=== PATIENT | female | born 1935 | race Caucasian/White ===

== ENCOUNTER 2017-08-12 10:52 | Outpatient (CLI) | payer MEDICARE | END 2017-08-12 10:53 | disposition home or self-care (01) | LOC: BICBD 10:52 | PROVIDERS: ATTEND Internal Medicine Endocrinology, Diabetes & Metabolism | DX: Z13.820 Encounter for screening for osteoporosis (principal); M89.9 Disorder of bone, unspecified | CPT/HCPCS: 77080 ==

== ENCOUNTER 2018-09-29 18:54 | Observation (INO) | payer MEDICARE ==
[2018-09-29] MEDS ORDERED: Nitroglycerin 2% Ointment 1 INCH/1 GM Packet ONE (19:42)
[2018-09-29] MEDS ORDERED: Aspirin Chewable 81 MG TAB ONE (19:42)
[2018-09-29 19:48] LABS: Hemoglobin 11.1 g/dL (12.0-16.0); Mean Corpuscular HGB CONC 30.3 g/dL (32.0-36.0); Mean Corpuscular Hemoglobin 23.5 pg (27.0-31.0); Mean Corpuscular Volume 77.6 fL (78.0-98.0); Mean Platelet Volume 7.9 fL (7.4-10.4); Platelet Count 368 thou/uL (130-400); RBC Distribution Width 15.6 % (11.5-14.5); Red Blood Cell (RBC) Count 4.73 mill/uL (4.20-5.40); White Blood Cell (WBC) Count 12.3 thou/uL (4.8-10.8)
[2018-09-29 19:53] LABS: #Basophils 0.2 thou/uL (0.0-0.2); #Eosinphils 0.3 thou/uL (0.0-0.7); #Lymphocytes 2.7 thou/uL (1.20-3.40); #Monocytes 0.9 thou/uL (0.11-0.59); #Neutrophils 8.3 thou/uL (1.40-6.50); %Basophils 1.3 % (0.0-1.0); %Eosinophils 2.3 % (0.0-10.0); %Lymphocytes 21.6 % (21.0-51.0); %Monocytes 7.1 % (0.0-10.0); %Neutrophils 67.7 % (42.0-75.0)
[2018-09-29 19:54] LABS: Anisocytosis SLIGHT = 6-15 cells (100X) (0-5/hpf); MDiff Complete? YES; Microcytosis SLIGHT = 6-15 cells (100X) (0-5/hpf); Ovalocytes SLIGHT = 2-5 cells (100X) (0-1/hpf); Platelet Morphology Comment Appears Adequate; Polychromasia SLIGHT = 2-3 cells (100X) (0-2/hpf)
[2018-09-29 20:01] LABS: ALT (SGPT) 16 U/L (8-55); AST (SGOT) 14 U/L (5-34); Alkaline Phosphatase 73 U/L (40-150); Anion Gap 17 mmol/L (10-20); BUN (Urea Nitrogen) 24 mg/dL (9.8-20.1); Bilirubin, Total 0.1 mg/dL (0.2-1.2); CK (CPK) 55 U/L (29-168); Calc. Creatinine Clearance 0 mL/min (70-130); Calcium 10.4 mg/dL (7.8-10.44); Carbon Dioxide 22 mmol/L (23-31); Chloride 106 mmol/L (98-107); Estimated GFR-MDRD 58; Globulin 3.4 g/dL (2.4-3.5); Glucose 102 mg/dL (83-110); Lipase 11 U/L (8-78); Potassium 4.6 mmol/L (3.5-5.1); Protein, Total 7.4 g/dL (6.0-8.3); Sodium 140 mmol/L (136-145)
--- NOTE | 2018-09-29 20:35 | RAD ---
TWO VIEW CHEST: 09/29/18 INDICATION: Chest pain. No evidence of infiltrate. Vascular markings normal. Heart size upper normal. Mild aortic calcificati on. Osseous structures unremarkable. IMPRESSION: No acute finding. POS: [facility]
[2018-09-29] MEDS ORDERED: Enoxaparin Sodium 80 MG/0.8 ML SYRINGE ONE (20:41)
--- NOTE | 2018-09-29 21:05 | RAD ---
PORTABLE CHEST: 09/29/18 HISTORY: Chest pain, shortness of breath. Film technique is suboptimal. Soft tissue obscures detail, particularly in the left base. Heart size is felt to be within normal limits considering the portable technique. No signs of failure. IMPRESSION: Less than optimal technique for this exam. What are felt to be soft tissue changes obscure the left l emily base. Clinical correlation as to any symptoms that would suggest any type of infiltrate. A PA and lateral chest film would be helpful in confirming there no abnormality exists in this area. POS: [facility]
[2018-09-29 22:15] LABS: Troponin I Less than 0.010 ng/mL (< 0.028)
[2018-09-30 01:20] VITALS: BMI 29.0
[2018-09-30 01:43] LABS: Troponin I Less than 0.010 ng/mL (< 0.028)
[2018-09-30] MEDS ORDERED: [UNRECOGNIZED DRUG - OTHER] SC PRN (06:37)
[2018-09-30] MEDS ORDERED: Prevnar 13-Val Conj/PF 0.5 ML SYRINGE IM ONE (09:00)
[2018-09-30 10:24] LABS: Bilirubin Negative (Negative); Blood, Urine Negative (Negative); Clarity CLEAR (Clear); Glucose, Urine (Dipstick) Negative (Negative); Leukocyte Negative (Negative); Nitrite Negative (Negative); Protein, Urine (Dipstick) Negative (Neg-Trace); Specific Gravity, Urine 1.017 (1.002-1.036); Urobilinogen 0.2 mg/dL (0.2-1.0)
[2018-09-30 10:26] LABS: Bacteria/HPF None Seen HPF (None Seen); Hyaline Casts/LPF 4-6 HYALINE CAST LPF (0-3 Hyaline); Pathc Cast-AUWi Flag 1.74 (0-2.49); RBC/HPF 0-3 HPF (0-3); Squamous Epithelial 0-3 HPF (0-3); WBC/HPF 0-3 HPF (0-3)
[2018-09-30 10:35] LABS: Urine Culture Reflex No No
--- NOTE | 2018-09-30 13:50 | NM ---
NUCLEAR MEDICINE VENTILATION PERFUSION SCAN: HISTORY: Elevated D-dimer. Evaluate for pulmonary artery embolism. COMPARISON: None. TECHNIQUE: The patient was administered 18.8 mCi of Xenon gas for ventilation imaging and 6.1 mCi of Technetium 99m-MAA for perfusion imaging. FINDINGS: VENTILATION IMAGIGN: There appears to e homogeneous distribution of the radiotracer. There is mild radiotracer retention. Perfusion images demonstrate some segmental ventilation perfusion mismatches in the right upper lobe, lateral aspect of the right mid lung and left upper lobe. Findings suggest intermediate probability for pulmonary artery embolism. IMPRESSION: Intermediate probability for pulmonary artery embolism. Further evaluation with CT angiogram of the chest is recommended. Examination was discussed with Dr. Gary 09/30/2018 at 12:59 p.m. The exam was reviewed in conjunction with Dr. Vila. CHUY OLIVAREZ POS: [facility]
--- NOTE | 2018-09-30 15:28 | ULT ---
BILATERAL LOWER EXTREMITY VENOUS ULTRASOUND WITH DOPPLER: HISTORY: Elevated D-dimer. COMPARISON: None. TECHNIQUE: Paul scale, color flow, Doppler imaging, and spectral waveform analysis was performed of the left and right lower extremity venous system. FINDINGS: Bilaterally, there is compressibility, presence of flow, and augmentation of the common femoral vein, femoral vein, and popliteal veins. There is flow in bilateral greater saphenous veins, profunda vei ns, and posterior tibial vein. IMPRESSION: No evidence of thrombus in the left or right lower deep venous system. POS: [facility]
[2018-09-30] MEDS: HumaLOG 300 UNITS/3 ML VIAL SC SCH (17:24)
[2018-09-30] MEDS: metFORMIN XR 500 MG TAB PO SCH (20:00)
[2018-09-30] MEDS ORDERED: Escitalopram Oxalate 10 mg Tablet PO SCH (20:15)
[2018-09-30] MEDS ORDERED: Verapamil SR 120 MG TAB PO SCH (20:15)
[2018-09-30] MEDS ORDERED: Nebivolol HCl 5 MG TAB PO SCH (20:15)
[2018-09-30] MEDS ORDERED: Lisinopril 20 MG TAB PO SCH (20:15)
[2018-09-30] MEDS ORDERED: Levothyroxine Sodium 112 MCG TAB PO SCH (20:15)
[2018-09-30] MEDS ORDERED: HumaLOG 300 UNITS/3 ML VIAL SC SCH (20:15)
[2018-09-30] MEDS ORDERED: Bupropion 150 MG XL TAB PO SCH (20:15)
[2018-09-30] MEDS: Cephalexin 250 MG CAP PO SCH (20:39)
[2018-09-30] MEDS: predniSONE 50 MG TAB PO SCH (20:40)
[2018-10-01] MEDS ORDERED: cloNIDine 0.1 MG TAB PO SCH (00:45)
[2018-10-01] MEDS: predniSONE 50 MG TAB PO SCH ×2 (00:48→08:01)
--- NOTE | 2018-10-01 02:51 | HP ---
HISTORY OF PRESENT ILLNESS: The patient is an 83-year-old female with known history of type 1 diabetes mellitus, presented with chest pain, dyspnea began while working in the kitchen with minimal exertion the rest of the day. She was seen and evaluated in the emergency room. There was no evidence of any acute coronary syndrome noted. Her initial troponins were negative. The patient remained with having some chest discomfort. It is noted that approximately 1 month or 6 weeks ago, she did have a stress test done by Dr. Perales as a workup for preoperative clearance. It has been reported that it is normal. As noted, her initial cardiac enzymes have been negative. She does not report any further chest pain. She was given multiple doses of aspirin. She did have a D-dimer done, which was elevated. Otherwise, no other laboratory findings other than elevated blood sugars have been noted. The patient noted onset of pain yesterday once again, not associated with any nausea, vomiting, or diarrhea. She has pending surgery to do. She has no previous history of DVT or embolic phenomena. ALLERGIES: SHE IS ALLERGIC TO IODINE WELL SULFA. CURRENT MEDICATIONS: 1. Verapamil 360 mg daily. 2. Bystolic 5 mg daily. 3. Lisinopril 20 mg daily. 4. Bupropion 150 mg daily. 5. 5 mg daily. 6. NovoLog insulin 6 units t.i.d. 7. Prilosec 20 mg daily. 8. Levothyroxine 112 mcg daily. 9. Metformin 1000 mg b.i.d. PAST MEDICAL HISTORY: Positive for hypertension, type 1 diabetes mellitus, and hypothyroidism. PAST SURGICAL HISTORY: Positive for appendectomy, hysterectomy, and left thumb surgery. SOCIAL AND PERSONAL HISTORY: She is . She does not smoke nor drinks alcohol. She does have family living close by. REVIEW OF SYSTEMS: Noncontributory at this time. FAMILY HISTORY: Noncontributory at this time. PHYSICAL EXAMINATION: VITAL SIGNS: Temperature 97.7, pulse 69, blood pressure 147/66, respirations 15, and O2 saturation 96%. GENERAL: She is alert and active, in no acute distress. HEENT: Otherwise unremarkable. NECK: Supple. Full range of motion. No masses. LUNGS: Clear. HEART: Reveals a regular rate and rhythm. No murmurs, gallops, or rubs. ABDOMEN: Soft and nontender. Bowel sounds are present and active. No hepatosplenomegaly. There is no evidence of rebound or guarding otherwise noted at this time. EXTREMITIES: No clubbing, edema, or cyanosis. No calf tenderness otherwise noted at this time. NEUROLOGIC: Alert and oriented x3. LABORATORY DATA: Her hemoglobin is 11.1, hematocrit 36.6, white blood count 12.3. D-dimer is elevated at 0.77. Sodium is 140, potassium 4.6, chloride 106, CO2 of 22, BUN 24, creatinine 0.93. Cardiac enzymes are all normal and negative x3. Urinalysis otherwise clear. Chest x-ray is clear. She underwent V/Q scan prior to being fully admitted by me, which has now been read as intermediate. IMPRESSION: 1. This is an 83-year-old female with substernal chest discomfort with elevated D-dimer, now with intermediate reading on the V/Q scan. These are all consistent with possible pulmonary embolus. She does have pending surgery in the next few weeks. Obviously, this would have a major impact upon her ability to withstand surgery. 2. History of type 1 diabetes mellitus. 3. History of hypertension. PLAN: I have discussed the findings with the patient and family. I feel like it will be necessary to undergo full CT angiogram despite contrast allergies. We will go and do contrast allergy protocol. Doppler ultrasound of the legs as well as CT angio of the chest. The patient has been informed of the findings and wishes to proceed. She has already been placed on Lovenox subcutaneously. Further treatment recommendations will be indicated by results of her testing. Job ID: [id number]
[2018-10-01] MEDS: Levothyroxine Sodium 112 MCG TAB PO SCH (06:17)
[2018-10-01] MEDS ORDERED: diphenhydrAMINE 50 MG CAP PO SCH (08:00)
[2018-10-01] MEDS: HumaLOG 300 UNITS/3 ML VIAL SC SCH ×3 (10:20→17:46)
[2018-10-01] MEDS: Cephalexin 250 MG CAP PO SCH ×2 (10:33→21:40)
[2018-10-01] MEDS: Bupropion 150 MG XL TAB PO SCH (10:33)
[2018-10-01] MEDS: Escitalopram Oxalate 10 mg Tablet PO SCH (10:34)
[2018-10-01] MEDS: Lisinopril 20 MG TAB PO SCH (10:36)
[2018-10-01] MEDS: metFORMIN XR 500 MG TAB PO SCH ×2 (10:37→21:43)
[2018-10-01] MEDS: Nebivolol HCl 5 MG TAB PO SCH (10:37)
--- NOTE | 2018-10-01 11:56 | CT ---
CTA OF THE THORAX UTILIZING IV CONTRAST AND PE PROTOCOL AND 3D REFORMATTED IMAGING: INDICATION: History of chest pain with chest flutter and elevated D-dimer. Concern for PE. COMPARISON: VQ scan for PE dated 09/30/2018. FINDINGS: No central or segmental pulmonary embolus is present. There are coronary artery and thoracic aorta c alcifications. No pathologically enlarged lymph nodes are evident. There are calcified lymph nodes within the right tracheobronchial region. There is a calcified granuloma within the right middle lob e. There are areas of subsegmental volume loss within the superior segment of the right lower lobe, and portions of the posterior segment of the right upper lobe. Confluent airspace opacity or pleural effusion is identified. There is a small hiatal hernia. There are calcified granuloma within the s pleen. There is a 1.2 cm left adrenal adenoma. There is a 9 mm right adrenal adenoma. There is a 1 .7 cm myelolipoma involving the right adrenal gland. There is an incompletely evaluated 3 cm cyst in volving the superior pole of the right kidney. This is better evaluated on a right upper quadrant ul trasound dated 06/09/2017 and shown to be a simple cyst. IMPRESSION: 1. No central or segmental pulmonary embolus identified. 2. Findings of prior granulomatous disease. 3. Nonspecific regions of subsegmental volume loss within the right lower lobe and right upper lobe can be seen with a bronchiolitis. 4. 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 There are benign lesions. 5. Right renal cyst. 6. Findings of right granulomatous disease. POS: [facility]
[2018-10-01] MEDS: Verapamil SR 120 MG TAB PO SCH (13:58)
[2018-10-01] MEDS ORDERED: Dextrose 50% Abboject 50 ML SYRINGE IVP PRN (15:10)
[2018-10-01] MEDS ORDERED: Dextrose 5% in Water 1,000 ML IV PRN (15:10)
[2018-10-01] MEDS ORDERED: Acetaminophen 325 MG TAB PO PRN (19:45)
[2018-10-01] MEDS ORDERED: Ibuprofen 800 MG TAB PO PRN (19:46)
--- NOTE | 2018-10-01 21:22 | PRG ---
DATE OF SERVICE: 10/01/2018 SUBJECTIVE: Ms. Jeong is doing well. She underwent CT angiogram and chest after contrast allergy protocol. CT angiogram of chest revealed no pulmonary emboli, positive granulomatous disease, nonspecific volume loss. No evidence of any other significant findings was noted. She is still doing well at this time. OBJECTIVE: LUNGS: Clear. HEART: Reveals a regular rate and rhythm. No murmurs, gallops, or rubs. IMPRESSION: Chest pain with elevated D-dimer. The patient is stable at this time, probably could be discharge tomorrow. Job ID: [id number]
[2018-10-02] MEDS: Levothyroxine Sodium 112 MCG TAB PO SCH (05:59)
--- NOTE | 2018-10-02 09:28 | DIS ---
DATE OF ADMISSION: 09/30/2018 DATE OF DISCHARGE: 10/02/2018 DISCHARGE DIAGNOSES: 1. Elevated D-dimer. Indeterminate V/Q scan. Negative CT angio. Negative venogram. 2. Type 1 diabetes mellitus. 3. Hypertension. HOSPITAL SUMMARY: The patient is an 83-year-old female, who came in with chest pain. She had previous cardiac workup and was cleared for surgery. She had elevated D-dimer. She was followed this up with V/Q scan due to iodine allergy. V/Q scan was read as moderate probability. Due to moderate probability V/Q scan and D-dimer being elevated, she subsequently underwent a CT angio after allergy prep. The patient's CT angio of chest was normal. She also underwent subsequent venogram. She was able to be discharged home on 10/02/2018, with her home medicines. She was instructed to hold her metformin for another day prior to resuming it. She will follow up with me in 2 days. Job ID: [id number]
[2018-10-02] MEDS: HumaLOG 300 UNITS/3 ML VIAL SC SCH ×2 (09:57→13:03)
[2018-10-02] MEDS: Cephalexin 250 MG CAP PO SCH (09:58)
[2018-10-02] MEDS: Escitalopram Oxalate 10 mg Tablet PO SCH (09:58)
[2018-10-02] MEDS: metFORMIN XR 500 MG TAB PO SCH (09:58)
[2018-10-02] MEDS: Bupropion 150 MG XL TAB PO SCH (09:58)
[2018-10-02] MEDS: Nebivolol HCl 5 MG TAB PO SCH (09:59)
[2018-10-02] MEDS: Lisinopril 20 MG TAB PO SCH (09:59)
[2018-10-02] MEDS: Verapamil SR 120 MG TAB PO SCH (10:14)
--- NOTE | 2018-10-02 10:43 | PRG ---
DATE OF SERVICE: 10/02/2018 SUBJECTIVE: Ms. Jeong is doing well. She has had no further chest pain. Her CT angio of the chest was normal. OBJECTIVE: VITAL SIGNS: Temperature 97.7, blood pressure 136/60. LUNGS: Clear. HEART: Reveals no murmur. IMPRESSION: Episode of chest pain with elevated D-dimer and moderate probability V/Q scan was negative with negative CT angio as well as negative venogram. PLAN: The patient may be discharged home. From my opinion, she is still able to have her surgery next week. She discussed this with her surgeon in [place]. We will provide all necessary records. Job ID: [id number]
[2018-10-02 14:05] VITALS: BP 142/63; TEMP 98
== END 2018-10-02 13:04 | disposition home or self-care (01) ==
LOC: SCSER 18:54 → 2NO 09-30 00:03
PROVIDERS: ADMIT Family Medicine; ATTEND Family Medicine
DX: R07.2 Precordial pain (principal); I10 Essential (primary) hypertension; E10.9 Type 1 diabetes mellitus without complications; E03.9 Hypothyroidism, unspecified; R79.1 Abnormal coagulation profile; Z79.82 Long term (current) use of aspirin; Z79.4 Long term (current) use of insulin; Z79.899 Other long term (current) drug therapy; Z88.2 Allergy status to sulfonamides; Z91.041 Radiographic dye allergy status
CPT/HCPCS: 71045; 71046; 71275; 78582; 80053; 81001; 82550; 82962 ×3; 83690; 84484 ×2; 85025; 85379; 93005; 93970; 94760; 96372; 99285; A9540; A9558; G0378 ×3; 36415; 36416; J1650

== ENCOUNTER 2019-05-19 09:41 | Outpatient (CLI) | payer MEDICARE ==
--- NOTE | 2019-05-19 10:22 | ULT ---
GALLBLADDER ULTRASOUND: HISTORY: Right upper quadrant abdominal pain FINDINGS: The liver demonstrates homogeneous echotexture without focal mass or intrahepatic biliary ductal dila tation. No gallstones, gallbladder wall thickening or pericholecystic fluid are seen. There is a complex mass in the region of the body of the pancreas measuring 2.6 x 2.8 cm. The common duct [id number] in diameter. A 5.6 x 6.1 x 6 cm septated cyst is seen arising from the craig perior pole of the right kidney. No free fluid is seen in the Miller's pouch. IMPRESSION: 1. Complex pancreatic mass. CT scan of the abdomen and pelvis with and without IV contrast using the pancreatic and renal mass protocol is recommended. 2. Septated cystic right renal mass.
== END 2019-05-19 09:42 | disposition home or self-care (01) ==
LOC: BICULT 09:41
PROVIDERS: ATTEND Family Medicine
DX: R10.11 Right upper quadrant pain (principal); K86.89 Other specified diseases of pancreas; N28.89 Other specified disorders of kidney and ureter
CPT/HCPCS: 76705

== ENCOUNTER 2019-05-31 08:28 | Outpatient (CLI) | payer MEDICARE ==
--- NOTE | 2019-05-31 11:53 | CT ---
CT Abdomen W WO Con History: Renal and pancreatic cystic masses. Comparison: Ultrasound May 19, 2019 Findings: Lung bases are clear aside from a partially calcified granuloma within the right middle lob e. No pericardial effusion. Within the right adrenal gland is a macroscopic fat-containing myelolipoma measuring up to 2 cm in si ze with a peripheral punctate calcification. The left adrenal gland has a precontrast Hounsfield unit of -13 suggesting a lipid rich adenoma which appears be infiltrating throughout the pancreatic b dashawn, and previously described and characterized as an adenoma. There is also a punctate right adrenal body adenoma. Within the pancreatic head and uncinate process is a multiloculated cystic mass with some wall nodula rity measuring up to 3.5 cm in craniocaudal dimension. Within the pancreatic body there is another multiseptated cystic mass with mural nodularity measuring up to 3.2 cm in AP dimension. There are num erous small cystic masses of the pancreatic tail and body. Within the superior pole right kidney is a septated cyst with measuring up to 5.2 cm. In the inferior pole right kidney is a 1.3 cm mass without significant internal enhancement suggesting a cyst. Too small characterize 4-5 mm hypodensities are present of superior pole right kidney as well as througho ut the cortex of the left kidney. Celiac trunk and superior mesenteric arteries are patent. Moderate atherosclerotic plaque of the aort a. There are small dede hepatis lymph nodes measuring up to 7 mm short axis. Within the gallbladder is dependent cholelithiasis. There is poorly evaluated hypodensity peripheral aspect of the hepatic segment VIII measuring up to 1.7 cm. This is best seen on axial image 129. There is also hypodensity which is poorly marginated hepatic segment VIII image 143 measuring 1.6 cm. The spleen is unremarkable. No dilated loops of large or small bowel the upper abdomen. Impression: 1. Two separate masses within the pancreas, one in the head/uncinate process and the other in the waters creatic body. Given its high risk appearance with mural nodularity, per ACR white paper, surgical consultation is advised. Alternatively, endoscopic ultrasound/FNA can be performed. 2. Poorly delineated hepatic masses within segment VIII could reflect metastatic metastatic disease. They are visualized on the noncontrast portion of the examination, and the lower hepatic segment VIII mass could possibly be percutaneously biopsied if clinically warranted. 3. Right adrenal adenoma and myelolipoma. 4. Mass within left adrenal gland has fat attenuation on the noncontrast portion of the examination s uggesting lipid rich infiltrative adrenal adenoma and a metastasis from cystic pancreatic neoplasm is felt somewhat less likely. 5. Cholelithiasis without cholecystitis.
[2019-05-31] MEDS ORDERED: Iopamidol 370 76% 100 ML VIAL ONE (12:19)
== END 2019-05-31 08:29 | disposition home or self-care (01) ==
LOC: CT 08:28
PROVIDERS: ATTEND Family Medicine
DX: K86.89 Other specified diseases of pancreas (principal); E27.8 Other specified disorders of adrenal gland; D17.5 Benign lipomatous neoplasm of intra-abdominal organs; R16.0 Hepatomegaly, not elsewhere classified; K80.20 Calculus of gallbladder without cholecystitis without obstruction
CPT/HCPCS: 74170; 82565; Q9967

== ENCOUNTER 2019-07-06 13:44 | Outpatient (CLI) | payer MEDICARE ==
--- NOTE | 2019-07-06 15:28 | PET ---
PET CT: HISTORY: An 83-year-old female with pancreatic cancer and liver mets. Initial staging. COMPARISON: None. CORRELATION: CT abdomen of 05/31/2019. TECHNIQUE: PET scanning with CT attenuation correction was performed from the base of the brain through the prox imal thighs following the intravenous administration of 12.6 millicuries F18 fluorodeoxyglucose in th e right wrist. FINDINGS: No hardik hypermetabolism is seen in the neck, chest, axillae, abdomen or pelvis. No hypermetabolic pu lmonary nodules or adrenal or skeletal lesions are seen. There is mildly increased FDG: localization in the pancreatic head/uncinate process in the region of the mass seen on the CT scan with an SUV of 2.6. No abnormal FDG localization is seen in the other pa ncreatic masses noted on the CT scan. There are two hypermetabolic foci in the right lobe of the liver with SUVs of 5.9 (superior lesion cl ose to the dome) and 5 (inferior lesion), respectively. There is physiologic activity in the GI and tracts and in the visualized portions of the brain. CT scan used for attenuation correction demonstrates no evidence of pleural effusions or ascites. IMPRESSION: Pancreatic malignancy with right liver lobe metastases. POS: [facility]
== END 2019-07-06 13:45 | disposition home or self-care (01) ==
LOC: PET 13:44
PROVIDERS: ATTEND Internal Medicine Hematology & Oncology
DX: C78.7 Secondary malignant neoplasm of liver and intrahepatic bile duct (principal); C25.9 Malignant neoplasm of pancreas, unspecified
CPT/HCPCS: 78815; A9552

== ENCOUNTER 2019-07-08 08:54 | Day surgery (SDC) | payer MEDICARE ==
[2019-07-08] MEDS ORDERED: Ketorolac Tromethamine 30 MG/ML VIAL ONE (09:42)
[2019-07-08] MEDS ORDERED: Famotidine/PF 20 mg/2ml Vial ONE (09:49)
[2019-07-08 10:05] LABS: #Basophils 0.1 thou/uL (0.0-0.2); #Eosinphils 0.1 thou/uL (0.0-0.7); #Lymphocytes 0.9 thou/uL (1.20-3.40); #Monocytes 0.6 thou/uL (0.11-0.59); #Neutrophils 9.8 thou/uL (1.40-6.50); %Basophils 0.6 % (0.0-1.0); %Eosinophils 1.1 % (0.0-10.0); %Lymphocytes 7.9 % (21.0-51.0); %Neutrophils 85.5 % (42.0-75.0); Hemoglobin 12.4 g/dL (12.0-16.0); Mean Corpuscular HGB CONC 31.4 g/dL (32.0-36.0); Mean Corpuscular Hemoglobin 27.2 pg (27.0-31.0); Mean Corpuscular Volume 86.6 fL (78.0-98.0); Mean Platelet Volume 9.1 fL (7.4-10.4); Platelet Count 314 thou/uL (130-400); RBC Distribution Width 18.7 % (11.5-14.5); Red Blood Cell (RBC) Count 4.55 mill/uL (4.20-5.40); White Blood Cell (WBC) Count 11.5 thou/uL (4.8-10.8)
[2019-07-08 10:13] LABS: Anion Gap 13 mmol/L (10-20); BUN (Urea Nitrogen) 27 mg/dL (9.8-20.1); Calc. Creatinine Clearance 0 mL/min (70-130); Calcium 10.4 mg/dL (7.8-10.44); Carbon Dioxide 24 mmol/L (23-31); Chloride 105 mmol/L (98-107); Estimated GFR-MDRD 40; Glucose 471 mg/dL (83-110); Potassium 4.4 mmol/L (3.5-5.1); Sodium 138 mmol/L (136-145)
[2019-07-08] MEDS ORDERED: Lidocaine 1% w/Epinephrine 1:100K 20 ML VIAL ONE (10:13)
[2019-07-08] MEDS ORDERED: Bupivacaine 0.25% HCL 30 ML VIAL ONE (10:13)
--- NOTE | 2019-07-08 10:35 | RAD ---
PORTABLE CHEST: Date: 07/08/19 HISTORY: Preop. FINDINGS: Heart size is within normal limits. There are atherosclerotic changes of the aorta. There is some enrique ear scarring in the left mid lung field. No pulmonary nodules are identified. There is some minimal b lunting to the right costophrenic angle. IMPRESSION: No active intrathoracic disease. POS: [facility]
[2019-07-08] MEDS ORDERED: PROPOFOL 60 ML ONE (10:39)
[2019-07-08] MEDS ORDERED: Fentanyl 100 MCG/2 ML VIAL ONE (10:39)
--- NOTE | 2019-07-08 12:16 | RAD ---
Chest one view HISTORY: Mediport placement COMPARISON: 07/08/2019. FINDINGS: Cardiac silhouette is magnified and upper limits of normal in size. Shallow inspiration acc entuates pulmonary markings. Vascular markings at the left posterior lung base are unchanged. Mediastinum is midline with aortic calcification and a new right subclavian Mediport. Tip overlies th e superior vena cava. No evidence of pneumothorax. IMPRESSION: Right subclavian Mediport in good radiographic position. Atherosclerosis.
[2019-07-08] MEDS ORDERED: PROPOFOL 200 MG/20 ML VIAL ONE (14:40)
--- NOTE | 2019-07-09 13:51 | OP ---
DATE OF PROCEDURE: 07/08/2019 PREOPERATIVE DIAGNOSIS: Pancreatic cancer. POSTOPERATIVE DIAGNOSIS: Pancreatic cancer. PROCEDURES PERFORMED: Right subclavian power compatible standard size MediPort placement. ANESTHESIA: Total intravenous anesthesia with local using 0.25% Marcaine with epinephrine. INDICATIONS: The patient is an 84-year-old white female. She has a recent diagnosis of metastatic pancreatic cancer. She presents for MediPort placement for chemotherapy administration. DESCRIPTION OF OPERATION: Informed consent was obtained. The patient was taken to the operating room where total intravenous anesthesia was obtained with the patient in supine position. Periclavicular area was prepped with ChloraPrep and draped in sterile fashion. Local anesthetic was infiltrated and a large-gauge needle was passed under the clavicle in the subclavian vein. Guidewire was passed through the needle and fluoroscopically confirmed to enter the superior vena cava. Additional local anesthetic was infiltrated and transverse incision was created based on needle insertion site. A subcutaneous pocket was dissected inferiorly. Introducer dilator was passed over the guidewire under fluoroscopic guidance. The guidewire and dilator were removed, and the catheter was passed through the introducer. The tip of the catheter was positioned at the atriocaval junction and the catheter was trimmed to the appropriate length and secured to the locking hub of the MediPort. The port was then placed in the subcutaneous pocket where it was secured to the pectoral fascia with 2 interrupted sutures of 3-0 Prolene. The incision was then closed in layers with 3-0 and 4-0 Monocryl. Additional local anesthetic was infiltrated. The port was cannulated with a Ching needle and it aspirated blood freely and was flushed with heparinized saline. Dermabond was placed externally on the skin incision. There were no complications. Blood loss was negligible. The patient tolerated the procedure well and was taken to recovery room in stable condition. FINDINGS: I placed a standard size MediPort in the right subclavian vein in an uneventful fashion. Blood loss was negligible. Fluoroscopy was used throughout. There were no complications. Job ID: [id number]
== END 2019-07-08 13:40 | disposition home or self-care (01) ==
LOC: SDC 08:54
PROVIDERS: ATTEND Specialist
PROC: 0JH60WZ Insertion of Totally Implantable Vascular Access Device into Chest Subcutaneous Tissue and Fascia, Open Approach (ICD-10-PCS; principal; 2019-07-08)
PROC: 02HV33Z Insertion of Infusion Device into Superior Vena Cava, Percutaneous Approach (ICD-10-PCS; 2019-07-08)
PROC: B518ZZA Fluoroscopy of Superior Vena Cava, Guidance (ICD-10-PCS; 2019-07-08)
DX: C25.9 Malignant neoplasm of pancreas, unspecified (principal); C78.7 Secondary malignant neoplasm of liver and intrahepatic bile duct; I10 Essential (primary) hypertension; E11.9 Type 2 diabetes mellitus without complications; E03.9 Hypothyroidism, unspecified; K21.9 Gastro-esophageal reflux disease without esophagitis; M19.90 Unspecified osteoarthritis, unspecified site; Z79.4 Long term (current) use of insulin; Z79.899 Other long term (current) drug therapy; Z88.2 Allergy status to sulfonamides; Z91.041 Radiographic dye allergy status
CPT/HCPCS: 36561; 71045; 80048; 82962; 85025; 93005; C1788; 36416; 93010; J0131; J0690; J1642; J1885; J2704; J3010; S0020; S0028

== ENCOUNTER 2019-10-05 09:10 | Outpatient (CLI) | payer MEDICARE ==
--- NOTE | 2019-10-05 11:01 | PET ---
EXAM: PET/CT HISTORY: 84-year-old female with a pancreatic masses and metastatic disease to the liver TECHNIQUE: PET scanning with CT attenuation correction was performed from the base of the brain to the proximal thighs following the intravenous administration of 12.3 millicuries [id number]. COMPARISON: PET/CT dated July 06, [address] of the abdomen dated May 31, 2019 FINDINGS: Biodistribution:The biodistribution for the exam appears acceptable. Head and neck: There is appropriate background activity within the brain. No hypermetabolic lymphaden opathy or masses identified. Thorax: No hypermetabolic pulmonary lesion, pleural effusion or lymphadenopathy is present. There are tiny sub-4 mm pulmonary nodules within both upper lobes with no associated hypermetabolic uptake. There is mild scattered scarring and subsegmental volume loss. There is calcified granuloma in the ri ght middle lobe. Abdomen and pelvis: There is expected background activity within the GI and systems.The known meta static lesions within the right hepatic lobe have decreased in size and conspicuity. The lesion within segment 8 of the right hepatic lobe now measures approximately 1.2 cm were previously measured 2.1 cm. Peak activity of this lesion is 2.72 with a mean activity 2.24. (Previous peak activity 5.39 with a mean activity of 5.03). The lesion within segment 7 of the right hepatic lobe has also de creased in size and conspicuity and now measures approximately 6 mm. The lesion previously measured approximately 1.9 cm. Peak activity associated with this lesion on the current examination is 3.09 wi th a mean activity of 2.95. (Previous peak activity was 4.95 with a mean activity of 4.69). No new hypermetabolic hepatic lesion is demonstrated. The partially cystic, partially solid masses of the pa ncreatic head and pancreatic body are unchanged. No hypermetabolic uptake is associated with these lesions. No hypermetabolic activity seen involving the adrenal lesions bilaterally. No additional hyp ermetabolic lymphadenopathy or free fluid is noted. Osseous structures and skin: No hypermetabolic skin or osseous lesion is identified. IMPRESSION: Abnormal PET/CT 1. Findings consistent with response to therapy with decrease in size and hypermetabolic uptake invol ving the hepatic metastatic lesions within segment 7 and segment 8 of the right hepatic lobe. 2. Stable partially cystic pancreatic masses with no associated hypermetabolic uptake. 3. No evidence of progression of metastatic disease within the abdomen and pelvis. No evidence of met astatic disease to the chest, head neck region and skin and osseous structures.
== END 2019-10-05 09:11 | disposition home or self-care (01) ==
LOC: PET 09:10
PROVIDERS: ATTEND Internal Medicine Hematology & Oncology
DX: C25.9 Malignant neoplasm of pancreas, unspecified (principal); C78.7 Secondary malignant neoplasm of liver and intrahepatic bile duct
CPT/HCPCS: 78815; A9552

== ENCOUNTER 2019-11-05 09:56 | Outpatient (CLI) | payer MEDICARE ==
--- NOTE | 2019-11-05 11:18 | ULT ---
EXAM: US Abdominal PROVIDED CLINICAL HISTORY: Elevated LFTs COMPARISON: PET/CT 10/05/2019 FINDINGS: The visualized abdominal aorta and IVC appear normal. No pancreatic head mass, by ultrasound measuring approximately 3 cm in greatest dimension. No pancrea tic ductal dilatation is evident. Hypoechoic right hepatic lobe mass measuring about 1.7 cm. The common duct measures up to 1.4 cm. No evidence for intrahepatic biliary ductal dilatation. The gallbladder is distended, without evidence for stones or wall thickening. The kidneys demonstrate no evidence for hydronephrosis or solid mass. Stable superior pole right adri l cystic structure with internal septation. The spleen is not enlarged and demonstrates no focal abnormality. IMPRESSION: 1. Development of common ductal dilatation, measuring up to 1.4 cm. Common duct obstruction should be considered. Consider GI consultation. Ordering clinician notified 11:11 AM 11/05/2019. 2. Hepatic and pancreatic masses as above.
== END 2019-11-05 09:57 | disposition home or self-care (01) ==
LOC: SCSULT 09:56
PROVIDERS: ATTEND Internal Medicine Hematology & Oncology
DX: C25.8 Malignant neoplasm of overlapping sites of pancreas (principal); R94.5 Abnormal results of liver function studies; C78.7 Secondary malignant neoplasm of liver and intrahepatic bile duct; K83.8 Other specified diseases of biliary tract; K86.89 Other specified diseases of pancreas; K76.89 Other specified diseases of liver
CPT/HCPCS: 93975

== ENCOUNTER 2019-11-10 06:32 | Day surgery (SDC) | payer MEDICARE ==
[2019-11-09 13:48] VITALS: BMI 28.5
[2019-11-10] MEDS ORDERED: Fentanyl 100 MCG/2 ML VIAL ONE ×2 (06:57→10:23)
[2019-11-10] MEDS ORDERED: Indomethacin 50 MG SUPP ONE (07:06)
[2019-11-10] MEDS ORDERED: Iothalamate Meglumine 60% 50 ML VIAL FS ONE (07:06)
[2019-11-10] MEDS ORDERED: Levofloxacin 500 mg/D5W 100 ml Premix Bag ONE (07:18)
[2019-11-10 07:35] LABS: #Basophils 0.1 thou/uL (0.0-0.2); #Eosinphils 0.4 thou/uL (0.0-0.7); #Lymphocytes 1.6 thou/uL (1.20-3.40); #Monocytes 1.1 thou/uL (0.11-0.59); #Neutrophils 5.5 thou/uL (1.40-6.50); %Basophils 1.5 % (0.0-1.0); %Eosinophils 4.1 % (0.0-10.0); %Lymphocytes 18.2 % (21.0-51.0); %Monocytes 12.2 % (0.0-10.0); Hemoglobin 13.3 g/dL (12.0-16.0); Mean Corpuscular HGB CONC 32.5 g/dL (32.0-36.0); Mean Corpuscular Hemoglobin 32.5 pg (27.0-31.0); Mean Platelet Volume 8.3 fL (7.4-10.4); Platelet Count 345 thou/uL (130-400); RBC Distribution Width 14.3 % (11.5-14.5); White Blood Cell (WBC) Count 8.7 thou/uL (4.8-10.8)
[2019-11-10 07:41] LABS: ALT (SGPT) 327 U/L (8-55); AST (SGOT) 138 U/L (5-34); Alkaline Phosphatase 235 U/L (40-110); Anion Gap 15 mmol/L (10-20); BUN (Urea Nitrogen) 19 mg/dL (9.8-20.1); Bilirubin, Total 2.8 mg/dL (0.2-1.2); Calc. Creatinine Clearance 55 mL/min (70-130); Calcium 10.2 mg/dL (7.8-10.44); Carbon Dioxide 23 mmol/L (23-31); Chloride 106 mmol/L (98-107); Estimated GFR-MDRD 57; Globulin 3.2 g/dL (2.4-3.5); Glucose 194 mg/dL (83-110); Lipase 7 U/L (8-78); Potassium 4.5 mmol/L (3.5-5.1); Protein, Total 7.2 g/dL (6.0-8.3); Sodium 139 mmol/L (136-145)
[2019-11-10 07:52] LABS: PTT 29.9 SEC (22.9-36.1); Prothrombin Time 13.4 SEC (12.0-14.7)
[2019-11-10] MEDS ORDERED: hydrALAZINE 20 MG/ML VIAL ONE (09:24)
[2019-11-10] MEDS ORDERED: HYDROmorphone 2 MG/ML VIAL SLOW IVP PRN (09:37)
[2019-11-10] MEDS ORDERED: Ondansetron PF 4 MG/2 ML Vial ONE ×2 (09:42→11:10)
[2019-11-10] MEDS ORDERED: hydrALAZINE 20 MG/ML VIAL SLOW IVP SCH (09:45)
[2019-11-10] MEDS ORDERED: Insulin Regular 300 UNITS/3 ML VIAL ONE (09:46)
[2019-11-10] MEDS ORDERED: HumaLOG 300 UNITS/3 ML VIAL ONE (09:48)
--- NOTE | 2019-11-10 09:51 | OP ---
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 The bilirubin on November 03 was 0.5 and this morning preprocedure bilirubin was 2.8, and her alkaline phosphatase has increased to 235 with elevated transaminases with an ALT of 327. PROCEDURE PERFORMED: Endoscopic retrograde cholangiopancreatography with sphincterotomy and covered metal biliary stent placement. DESCRIPTION OF PROCEDURE: Informed consent was obtained from the patient. She was sedated with general anesthesia and placed in the prone position. The duodenoscope was advanced easily to the second portion of the duodenum, where the ampulla was identified and had a protruding nipple above the biliary opening. The stomach was clear without any retained food contents. The common bile duct was selectively cannulated. The wire went up through the sphincter and then curled in the distal bile duct. Originally, this was thought to be more likely to be in the pancreatic duct and the wire was removed and repositioned and again the wire went into the same duct. Third attempt, again the wire has right-angled biliary duct, but curled at the top of a suspected stricture. Ultimately, the duct was injected with contrast, which showed a 3 to 4 cm stricture in the distal common bile duct. There was a dilated biliary system above that stricture. This did confirm the wire to be in the appropriate position all along. The sphincterotome was advanced further into the duct through the stricture with resistance. Cholangiogram showed unremarkable hepatic ducts. A complete sphincterotomy was then performed. The tissue was soft and friable around the ampulla. Finally, a 6-cm metal stent was placed in good position across the stricture with the tip of the stent extending beyond the ampulla in appropriate position. There was good drainage of contrast. The pancreatic duct was not accessed during this procedure. IMPRESSION: 1. Ampulla with the protruding nipple above the bile duct opening. 2. Common bile duct was selectively cannulated with a sphincterotome and guidewire and a complete sphincterotomy was performed. 3. Cholangiogram revealed a 3 to 4 cm stricture in the distal common bile duct. The hepatic ducts were unremarkable. 4. A 6-cm covered metal stent was placed in good position across the stricture with good drainage. RECOMMENDATIONS: We will monitor in postoperative care for few hours. If she has no immediate complications, then she can discharge home today and follow up with Oncology. Job ID: [id number]
--- NOTE | 2019-11-10 10:01 | RAD ---
ERCP: DATE: 11/10/2019 Seven fluoroscopic images obtained from OR. INDICATION: Intraoperative imaging during ERCP procedure for elevated liver enzymes. FINDINGS/IMPRESSION: These images demonstrate cannulization and opacification of the biliary ducts. Final images show plac ement of a biliary stent with luminal narrowing in the mid common duct. POS: [facility]
[2019-11-10] MEDS ORDERED: Metoprolol Tartrate 5 MG/5 ML VIAL ONE (10:36)
[2019-11-10] MEDS ORDERED: Rocuronium Bromide 10 MG/ML (10ML VIAL) ONE (11:10)
[2019-11-10] MEDS ORDERED: Succinylcholine Chloride 20 MG/ML 10 ml SYRINGE FS ONE (11:10)
[2019-11-10] MEDS ORDERED: PHENYLEPHRINE-NS 100 MCG/ML 10 ML SYRINGE ONE (11:10)
[2019-11-10] MEDS ORDERED: Lidocaine 1% PF 5 ML VIAL ONE (11:10)
[2019-11-10] MEDS ORDERED: PROPOFOL 200 MG/20 ML VIAL ONE (11:10)
[2019-11-10] MEDS ORDERED: EPHEDRINE 25 MG/5 ML SYRINGE ONE (11:10)
[2019-11-10] MEDS ORDERED: Dexamethasone 20 MG/5 ML VIAL ONE (11:10)
[2019-11-10] MEDS ORDERED: Lisinopril 20 MG TAB PO SCH (11:30)
[2019-11-10] MEDS ORDERED: Morphine 2 MG/ML SYRINGE ONE (12:18)
[2019-11-10] MEDS ORDERED: Sodium Chloride For Inhalation 0.9% 3 ML NEB ONE (14:01)
[2019-11-10] MEDS ORDERED: Acetaminophen 500 MG TAB ONE (15:10)
== END 2019-11-10 15:05 | disposition home or self-care (01) ==
LOC: SDC 06:32
PROVIDERS: ATTEND Internal Medicine Gastroenterology
PROC: 0F798DZ Dilation of Common Bile Duct with Intraluminal Device, Via Natural or Artificial Opening Endoscopic (ICD-10-PCS; principal; 2019-11-10)
DX: C25.9 Malignant neoplasm of pancreas, unspecified (principal); K83.1 Obstruction of bile duct; E11.9 Type 2 diabetes mellitus without complications; K21.9 Gastro-esophageal reflux disease without esophagitis; I10 Essential (primary) hypertension; E03.9 Hypothyroidism, unspecified; Z90.49 Acquired absence of other specified parts of digestive tract; Z90.710 Acquired absence of both cervix and uterus; Z98.890 Other specified postprocedural states; Z79.899 Other long term (current) drug therapy; Z79.84 Long term (current) use of oral hypoglycemic drugs; Z91.041 Radiographic dye allergy status; Z88.2 Allergy status to sulfonamides; Z87.891 Personal history of nicotine dependence; Z88.1 Allergy status to other antibiotic agents
CPT/HCPCS: 43274; 74330; 80053; 82962; 83690; 85025; 85610; 85730; C1769; C1874; J1610; 36415; 36416; J0360; J1100; J1815; J1956; J2001; J2270; J2405; J2704; J3010

== ENCOUNTER 2020-01-04 08:38 | Outpatient (CLI) | payer MEDICARE ==
[2020-01-04] MEDS ORDERED: Iopamidol 370 76% 100 ML VIAL ONE (08:51)
--- NOTE | 2020-01-04 11:46 | CT ---
CT OF CHEST AND ABDOMEN AND PELVIS PERFORMED WITH IV CONTRAST ENHANCEMENT: Date: 01/04/2020 HISTORY: Stage IV pancreatic cancer. Follow-up. COMPARISON: 05/31/2019 CT abdomen and a PET scan examination performed on 10/05/2019. FINDINGS: CT CHEST: The two small nodular 3-4 mm densities seen in the left upper lobe, axial images 12 and 15, are stabl e as compared to that prior examination. There is some minimal ground-glass opacity in the superior s egment of the right lower lobe, less prominent than on the prior exam. No pleural effusion identified . There is no significant mediastinal, hilar, or axillary lymphadenopathy. The thyroid gland is normal in appearance. CT ABDOMEN: The liver shows two hypodense lesions within the right lobe, axial image 49 and 53, which are felt to be stable as compared to the prior examination. It is difficult to measure due to their ill-defined nature. In addition, within the lateral segment of the left lobe, axial image 53, is a subtle hypoden sity not definitely visualized on the prior studies. I cannot exclude this representing a new lesion. Pneumobilia related to stent placement is noted. The spleen is within normal limits of size. There has been a definite decrease in size to the cystic lesion of the uncinate process, still with r esidual cystic area measuring in the 11-12 mm range. There has also been a definite improvement in th e cystic appearing lesion which is located at the pancreatic body-tail junction. Again, a somewhat il l-defined lesion in nature measuring 2.6 cm in maximum dimension as compared to approximately 3.1 cm on the prior study. Gallbladder is mildly distended. The right and left adrenal lesions remain stable. Right upper pole renal cyst is unchanged. No signif icant periaortic or mesenteric adenopathy. CT PELVIS: No adenopathy, mass, or free fluid. Review of osseous structures showed no lytic or blastic bony change. IMPRESSION: 1. Interval improvement in the size of the cystic lesions involving the pancreatic body-tail junctio n region and uncinate process. 2. Stable bilateral adrenal lesions which appear to contain fat. 3. Tiny 3-4 mm left upper lobe pulmonary nodule, stable. 4. Right lobe liver lesions are stable. There is a questionable new subtle ill-defined hypodensity w ithin the lateral segment of the left lobe of the liver. 5. Biliary stent in good position. There is some mild pneumobilia present. 6. Renal cysts. POS: [id number]
== END 2020-01-04 08:39 | disposition home or self-care (01) ==
LOC: CT 08:38
PROVIDERS: ATTEND Internal Medicine Hematology & Oncology
DX: C25.8 Malignant neoplasm of overlapping sites of pancreas (principal); C78.7 Secondary malignant neoplasm of liver and intrahepatic bile duct; D50.8 Other iron deficiency anemias; N28.1 Cyst of kidney, acquired
CPT/HCPCS: 71260; 74177; Q9967

== ENCOUNTER 2020-02-23 10:48 | Outpatient (CLI) | payer MEDICARE ==
--- NOTE | 2020-02-23 11:57 | ULT ---
ABDOMINAL ULTRASOUND: CLINICAL HISTORY: Ascites. COMPARISON: 11/05/2019 . FINDINGS: Pancreas: Obscured by bowel gas. IVC: Markedly limited evaluation due to bowel gas. Aorta: Markedly limited evaluation due to bowel gas. Liver:Hypoechoic mass in the left and right hepatic lobes. Largest hypoechoic mass is in the right he patic lobe measuring 2.3 x 2.7 x 2.7 cm. Gallbladder: Extensive echogenic sludge within the lumen of the gallbladder. Gallbladder is distended , measuring 8.8 cm. Gallbladder wall is not thickened. Mcnamara's sign:Not commented upon. CBD: 1.3 cm common bile duct diameter. There is a stent in the common bile duct. Portal vein: Patent. Appropriate directional flow. Right kidney: Normal cortical echotexture. No hydronephrosis Right kidney measuring 12.2 x 3.8 x 4. 3 cm in length. Exophytic cyst in the upper pole of the right kidney measuring 5.0 x 3.8 x 4.8 cm. Left kidney: Normal cortical echotexture. No hydronephrosis. Left kidney measuring 4.9 x 4.7 x 10.3 c m in length. Spleen: Normal echotexture, measuring 9.5 cm. IMPRESSION: 1. Hypoechoic masses in the liver, worrisome for hepatic metastases. 2. Sludge within a distended gallbladder. 3. Dilated common bile duct with a bile duct stent. Transcribed Date/Time: 02/23/2020 12:13 PM
== END 2020-02-23 10:49 | disposition home or self-care (01) ==
LOC: ULT 10:48
PROVIDERS: ATTEND Internal Medicine Hematology & Oncology
DX: R18.8 Other ascites (principal); D50.8 Other iron deficiency anemias; C78.7 Secondary malignant neoplasm of liver and intrahepatic bile duct; C25.8 Malignant neoplasm of overlapping sites of pancreas; R16.0 Hepatomegaly, not elsewhere classified; K82.8 Other specified diseases of gallbladder; K83.8 Other specified diseases of biliary tract
CPT/HCPCS: 93975

== ENCOUNTER 2020-03-02 09:25 | Outpatient (CLI) | payer MEDICARE ==
--- NOTE | 2020-03-02 11:18 | CT ---
CT ABDOMEN AND PELVIS WITH CONTRAST: INDICATION: Abdominal distention and abdominal pain. Pancreatic cancer with liver mets. COMPARISON: Comparison is made to recent CT abdomen and pelvis 01/04/2020. FINDINGS: Images through the lung bases again show a calcified granuloma in the anterior right lower lung with chronic parenchymal changes which are stable. Imaging of the liver reveals progression of the liver metastatic lesions when compared to 01/04/2020. A utility sales representative lesion in the left lobe of the liver has increased in size from 10 mm on the prior s tudy to 16 mm today axial. A lesion in the peripheral right lobe has increased in size from 12 mm on the prior exam to 20 mm today. A cluster of lesions in the upper peripheral liver near the liver ma rgin is also more prominent today. Pneumobilia again noted. Spleen unremarkable. The cystic masses in the pancreas which have been previously described are stable. Bilateral adrenal nodules are stable. Bilateral renal cystic lesions are stable. No hydronephrosis. Small bowel loops normal caliber. Colon unremarkable. Urinary bladder contracted and unremarkable. Aorta calcified without aneurysm. No free fluid or adenopathy. Degenerative disk changes at L4-5 a nd L5-S1 again noted with central canal stenosis at L4-5. IMPRESSION: 1. The liver metastatic lesions have progressed when compared to 01/04/2020. 2. Otherwise, CT abdomen and pelvis appear stable in appearance with no evidence of acute process. POS: AH
== END 2020-03-02 09:26 | disposition home or self-care (01) ==
LOC: CT 09:25
PROVIDERS: ATTEND Internal Medicine Gastroenterology
DX: C25.0 Malignant neoplasm of head of pancreas (principal); C78.7 Secondary malignant neoplasm of liver and intrahepatic bile duct; K82.0 Obstruction of gallbladder; K76.9 Liver disease, unspecified
CPT/HCPCS: 74177

== ENCOUNTER 2020-05-25 08:23 | Outpatient (CLI) | payer MEDICARE ==
--- NOTE | 2020-05-25 10:00 | CT ---
CT CHEST AND ABDOMEN AND PELVIS WITH CONTRAST: Date: 05/25/2020 Oral contrast was given. INDICATION: Stage IV pancreatic cancer with mets to the liver. Comparison made to CT chest, abdomen, and pelvis dated 01/04/2020. FINDINGS: CT CHEST: Two small nodules in the left apical region have been previously described, measuring in the 4-5 mm r mireille. These tiny nodules are stable. Parenchymal stranding in the posterior aspect of the superior se gment of the right lower lobe is stable. Calcified nodule in the right middle lobe is stable. Mediast inum unremarkable and stable. Bony thorax unremarkable. IMPRESSION: No acute chest finding or interval change. Tiny left apical nodules are stable. CT ABDOMEN AND PELVIS: Evaluation of the liver again shows three areas of metastatic involvement. All three areas appear to have enlarged slightly since the prior exam. In the left lobe of the liver, there is a lesion which m easures approximately 2.0 cm maximal dimension in the coronal plane today. Previous measurements were approximately 1.1-1.2 cm. There is an irregularly shaped lesion along the border of the right lobe of the liver superiorly unde r the diaphragm. This previously had the appearance of several small nodular densities grouped togeth er with a total measurement of approximately 2.3 cm axial. On today's exam, this area is more confluent and measures up to 2.8 cm axial. Another lesion in the peripheral right lobe slightly more inferior measures 2.5 cm craniocaudal today in the coronal plane, where as previously it measured approximately 1.2 cm. The pneumobilia is again seen and is similar to the prior exam. On today's exam, gas is also seen wit hin the gallbladder lumen and within the cystic duct, which is a new finding. Spleen unremarkable. The cystic lesion in the uncinate process of the pancreas is slightly increased, measuring up to 1.8 cm today axial, where as it previously measured 1.2 cm. The heterogeneous mass lesion in the body of the pancreas appears stable, measuring approximately 2.6 cm today. Bilateral adrenal nodules appear unchanged. The right renal cystic lesion is stable. Kidneys otherwise unremarkable and unchanged. Bowel loops unremarkable. Images through pelvis unremarkable. Aortic calcification again noted. Osseous structures appear stable. Degenerative changes in the lower lumbar spine noted at L4-5 and L5 -S1. IMPRESSION: 1. Liver lesions have increased in size slightly since the prior exam as detailed above. 2. Cystic lesion in the uncinate process slightly larger today. The lesion in the body of the pancre as appears stable. 3. Adrenal nodules appear stable. 4. Right renal cyst is stable. POS: [facility]
== END 2020-05-25 08:24 | disposition home or self-care (01) ==
LOC: CT 08:23
PROVIDERS: ATTEND Internal Medicine Hematology & Oncology
DX: C25.8 Malignant neoplasm of overlapping sites of pancreas (principal); C78.7 Secondary malignant neoplasm of liver and intrahepatic bile duct; N28.1 Cyst of kidney, acquired; E27.8 Other specified disorders of adrenal gland; K76.9 Liver disease, unspecified; K86.89 Other specified diseases of pancreas
CPT/HCPCS: 71260; 74177

== ENCOUNTER 2020-09-12 08:31 | Outpatient (CLI) | payer MEDICARE ==
[2020-09-12] MEDS ORDERED: diphenhydrAMINE 50 MG CAP PO SCH (09:15)
[2020-09-12] MEDS ORDERED: predniSONE 50 MG TAB PO SCH (09:15)
[2020-09-12] MEDS ORDERED: diphenhydrAMINE 25 MG CAP ONE (09:52)
[2020-09-12] MEDS ORDERED: Iopamidol 370 76% 100 ML VIAL ONE (10:28)
--- NOTE | 2020-09-12 11:50 | CT ---
CHEST CT WITH CONTRAST ABDOMEN CT WITH CONTRAST PELVIC CT WITH CONTRAST: HISTORY: Pancreatic cancer. Stage IV cancer with liver metastases. Correlation: None. COMPARISON: 05/25/2020, 03/02/2020. FINDINGS: Chest CT: Mediastinum: No mass, lymphadenopathy or hematoma. Aorta: Atherosclerosis without aneurysm, dissection or periaortic fat stranding. Heart: Normal heart size. No significant pericardial fluid. Trachea and central bronchi: Patent. Pleural spaces: No effusion. Right lung: Scarring and atelectasis. Calcified granuloma in the middle lobe. No suspicious pulmonary nodules. Left lung:Scarring and atelectasis. 0.2 cm left apical nodule, unchanged from previous exam. Previous ly noted second smaller nodule is less evident, in the left lung apex. Pneumothorax: None. Abdomen CT: Gallbladder: Unremarkable gallbladder. There is a stent in the common bile duct with resultant air at tenuation in the common bile duct and central intrahepatic biliary system. Portal vein: Patent. Liver: Previously noted metastatic deposits in the liver are slightly less evident. Currently there i s a 0.6 cm metastatic lesion in segment 2 of the liver which appears and measures 0.9 cm. There is a metastatic lesion in segment 7 of the liver currently measuring 0.6 cm, previously measuring 1.5 cm . There is retraction of the hepatic capsule in the region of the previous identified 3.2 cm metastatic deposit. Minimal residual hypodensity measuring 0.9 cm does remain. There are no new lesio ns within the hepatic parenchyma.. Spleen: Appropriate enhancement. Pancreas: Redemonstration of a mixed attenuation predominantly solid mass proximal body of the pancre as. Currently, mass measures 2.4 x 1.7 cm, previously measuring 2.6 x 2.2 cm. There is mild dilatation of the pancreatic duct distal to this lesion. There is stable hypoattenuation involving th e uncinate process, measuring 1.6 cm. Adrenal glands: Stable nodules in the left and right adrenal gland. Lymphadenopathy: No gastrohepatic, retrocrural or periportal lymphadenopathy. Kidneys: Symmetric enhancement without obstructive uropathy. Redemonstration of renal cortical cysts. Mesentery: No mass, lymphadenopathy, free air or free fluid. Alimentary canal: No evidence of a bowel obstruction. Pelvis CT: No mass, lymphadenopathy, free air or free fluid. Surgically absent uterus. Presacral fat is preserved. Osseous structures:No lytic or blastic lesions in the osseous structures. IMPRESSION: 1. Partial response to therapy. There is an overall decrease in the size of the metastatic deposits w ithin the liver. 2. Redemonstration of a stable mass involving the proximal body of the pancreas as well as a predomin antly hypodense component in the uncinate process of the pancreas. Transcribed Date/Time: 09/12/2020 2:22 PM
== END 2020-09-12 08:32 | disposition home or self-care (01) ==
LOC: CT 08:31
PROVIDERS: ATTEND Internal Medicine Hematology & Oncology
DX: C78.7 Secondary malignant neoplasm of liver and intrahepatic bile duct (principal); C25.8 Malignant neoplasm of overlapping sites of pancreas; K86.89 Other specified diseases of pancreas; D50.8 Other iron deficiency anemias
CPT/HCPCS: 36415; 71260; 74177; 82378; J7512; Q0163; Q9967

== ENCOUNTER 2020-10-18 09:21 | Outpatient (CLI) | payer MEDICARE ==
[2020-10-18] MEDS ORDERED: Magnevist 469MG/ML 20 ML VIAL ONE (10:16)
== END 2020-10-18 09:22 | disposition home or self-care (01) ==
LOC: MRI 09:21
PROVIDERS: ATTEND Internal Medicine Hematology & Oncology
DX: H53.8 Other visual disturbances (principal); R42 Dizziness and giddiness; I67.82 Cerebral ischemia; G31.9 Degenerative disease of nervous system, unspecified
CPT/HCPCS: 70553; A9579

== ENCOUNTER 2020-11-14 09:38 | Outpatient (CLI) | payer MEDICARE ==
[~2020-11-14 09:38] MED LIST: Iopamidol 370 76% 100 ML VIAL ONE
== END 2020-11-14 09:39 | disposition home or self-care (01) ==
LOC: CT 09:38
PROVIDERS: ATTEND Internal Medicine Hematology & Oncology
DX: C78.7 Secondary malignant neoplasm of liver and intrahepatic bile duct (principal); C25.8 Malignant neoplasm of overlapping sites of pancreas; K76.9 Liver disease, unspecified; N28.1 Cyst of kidney, acquired; E27.8 Other specified disorders of adrenal gland; K86.9 Disease of pancreas, unspecified; R59.0 Localized enlarged lymph nodes
CPT/HCPCS: 71260; 74177; 82565; Q9967

== ENCOUNTER 2020-12-01 15:40 | Outpatient (CLI) | payer MEDICARE | END 2020-12-01 15:41 | disposition home or self-care (01) | LOC: BICRAD 15:40 | PROVIDERS: ATTEND Family Medicine | DX: M79.671 Pain in right foot (principal) ==

== ENCOUNTER 2020-12-26 09:55 | Outpatient (CLI) | payer MEDICARE | END 2020-12-26 09:56 | disposition home or self-care (01) | LOC: CT 09:55 | PROVIDERS: ATTEND Internal Medicine Hematology & Oncology | DX: C25.8 Malignant neoplasm of overlapping sites of pancreas (principal); C78.7 Secondary malignant neoplasm of liver and intrahepatic bile duct; K76.9 Liver disease, unspecified; K86.89 Other specified diseases of pancreas; E27.8 Other specified disorders of adrenal gland | CPT/HCPCS: 74160; Q9967 ==

== ENCOUNTER 2021-02-06 09:48 | Outpatient (CLI) | payer MEDICARE | END 2021-02-06 09:49 | disposition home or self-care (01) | LOC: CT 09:48 | PROVIDERS: ATTEND Internal Medicine Hematology & Oncology | DX: C25.8 Malignant neoplasm of overlapping sites of pancreas (principal); C78.7 Secondary malignant neoplasm of liver and intrahepatic bile duct | CPT/HCPCS: 74160 ==

== ENCOUNTER 2021-03-18 16:37 | Inpatient (IN) | payer MEDICARE ==
[2021-03-18 18:11] LABS: Hemoglobin 11.1 g/dL (12.0-16.0); Mean Corpuscular HGB CONC 33.4 g/dL (32.0-36.0); Mean Corpuscular Hemoglobin 30.3 pg (27.0-31.0); Mean Corpuscular Volume 90.8 fL (78.0-98.0); Mean Platelet Volume 7.4 fL (7.4-10.4); Platelet Count 165 thou/uL (130-400); RBC Distribution Width 14.2 % (11.5-14.5); Red Blood Cell (RBC) Count 3.66 mill/uL (4.20-5.40); White Blood Cell (WBC) Count 34.5 thou/uL (4.8-10.8)
[2021-03-18 18:28] LABS: Band 30 % (5-11); Eosinophils 1 % (0-10); Lymphocytes 7 % (21-51); MDiff Complete? YES; Monocytes 1 % (0-10); Neutrophil 59 % (42-75); Platelet Morphology Comment Appears Adequate; RBC Morphology Normal; Reactive Lymphocytes 2 % (0-10)
[2021-03-18 18:30] LABS: ALT (SGPT) 16 U/L (8-55); AST (SGOT) 16 U/L (5-34); Albumin 3.3 g/dL (3.4-4.8); Alkaline Phosphatase 225 U/L (40-110); Anion Gap 12 mmol/L (10-20); BUN (Urea Nitrogen) 21 mg/dL (9.8-20.1); Bilirubin, Total 0.4 mg/dL (0.2-1.2); CK (CPK) 10 U/L (29-168); Calc. Creatinine Clearance 0 mL/min (70-130); Calcium 9.4 mg/dL (7.8-10.44); Carbon Dioxide 25 mmol/L (23-31); Chloride 104 mmol/L (98-107); Globulin 2.9 g/dL (2.4-3.5); Glucose 125 mg/dL (83-110); Magnesium 1.4 mg/dL (1.6-2.6); Potassium 4.1 mmol/L (3.5-5.1); Protein, Total 6.2 g/dL (5.8-8.1); Sodium 137 mmol/L (136-145)
[2021-03-18] MEDS ORDERED: Acetaminophen 650 MG Suppository PR PRN (23:33)
[2021-03-18] MEDS ORDERED: Ondansetron PF 4 MG/2 ML Vial IVP PRN (23:33)
[2021-03-18] MEDS ORDERED: Acetaminophen 325 MG TAB PO PRN (23:33)
[2021-03-18] MEDS ORDERED: Loperamide HCl 2 MG CAP PO PRN (23:33)
[2021-03-19] MEDS: Sodium Chloride 0.9% 1,000 ML IV SCH ×2 (00:44→06:51)
[2021-03-19] MEDS ORDERED: HumaLOG 300 UNITS/3 ML VIAL SC PRN ×2 (02:41)
[2021-03-19] MEDS ORDERED: Dextrose 5% in Water 1,000 ML IV PRN (02:41)
[2021-03-19] MEDS ORDERED: Dextrose 50% Abboject 50 ML SYRINGE SLOW IVP PRN (02:41)
[2021-03-19] MEDS ORDERED: Piperacillin/Tazobactam 3.375 GM in Sodium Chloride 0.9% 100 ML IVPB SCH (03:00)
[2021-03-19] MEDS ORDERED: Pantoprazole 40 MG VIAL IVP SCH (03:00)
[2021-03-19 03:31] VITALS: BMI 24.2
[2021-03-19 04:59] LABS: Bacteria/HPF None Seen HPF (None Seen); Bilirubin Negative (Negative); Blood, Urine Negative (Negative); Clarity Clear (Clear); Glucose, Urine (Dipstick) Normal (Negative); Ketone, Urine Negative (Negative); Leukocyte 25 Leu/uL (Negative); Nitrite Negative (Negative); Protein, Urine (Dipstick) Negative (Neg-Trace); RBC/HPF 0-3 HPF (0-3); Squamous Epithelial None Seen HPF (0-3); Urobilinogen Normal mg/dL (Less than 2)
[2021-03-19 05:05] LABS: Urine Culture Reflex Yes Yes
[2021-03-19 05:56] LABS: Anion Gap 10 mmol/L (10-20); BUN (Urea Nitrogen) 16 mg/dL (9.8-20.1); Calc. Creatinine Clearance 51 mL/min (70-130); Calcium 8.9 mg/dL (7.8-10.44); Carbon Dioxide 24 mmol/L (23-31); Chloride 110 mmol/L (98-107); Glucose 100 mg/dL (83-110); Magnesium 1.3 mg/dL (1.6-2.6); Potassium 4.5 mmol/L (3.5-5.1); Sodium 139 mmol/L (136-145)
[2021-03-19 06:20] LABS: Hemoglobin 10.3 g/dL (12.0-16.0); Mean Corpuscular HGB CONC 33.4 g/dL (32.0-36.0); Mean Corpuscular Hemoglobin 30.5 pg (27.0-31.0); Mean Corpuscular Volume 91.2 fL (78.0-98.0); Mean Platelet Volume 7.9 fL (7.4-10.4); Platelet Count 137 thou/uL (130-400); Red Blood Cell (RBC) Count 3.39 mill/uL (4.20-5.40)
[2021-03-19 07:01] LABS: Band 12 % (5-11); Eosinophils 2 % (0-10); Lymphocytes 16 % (21-51); MDiff Complete? YES; Monocytes 5 % (0-10); Neutrophil 65 % (42-75)
[2021-03-19] MEDS ORDERED: Electrolyte Replacement Protocol 1 EACH FS SCH (07:15)
[2021-03-19] MEDS ORDERED: Magnesium Sulfate 4 GM in Sodium Chloride 0.9% 250 ML 250 ML IVPB SCH (08:00)
[2021-03-19] MEDS: Saccharomyces boulardii 250 MG CAP PO SCH (08:15)
[2021-03-19] MEDS: Pantoprazole 40 MG VIAL IVP SCH (08:15)
[2021-03-19] MEDS: Enoxaparin Sodium 40 MG/0.4 ML SYRINGE SC SCH (08:15)
[2021-03-19] MEDS: Ondansetron ODT 4 MG TAB PO PRN ×2 (08:15→18:33)
[2021-03-19] MEDS: Piperacillin/Tazobactam 3.375 GM in Sodium Chloride 0.9% 100 ML IVPB SCH ×2 (12:04→20:27)
[2021-03-19 14:36] LABS: SARS-CoV-2 PCR by NAA Not Detected (NotDetected)
[2021-03-19] MEDS ORDERED: traMADol HCl 50 MG TAB PO PRN (22:27)
[2021-03-20] MEDS: Ondansetron ODT 4 MG TAB PO PRN (00:32)
[2021-03-20] MEDS ORDERED: hydrALAZINE 20 MG/ML VIAL SLOW IVP PRN (00:37)
[2021-03-20] MEDS: Piperacillin/Tazobactam 3.375 GM in Sodium Chloride 0.9% 100 ML IVPB SCH (04:42)
[2021-03-20 05:52] LABS: ALT (SGPT) 39 U/L (8-55); AST (SGOT) 38 U/L (5-34); Albumin 3.1 g/dL (3.4-4.8); Alkaline Phosphatase 272 U/L (40-110); Anion Gap 8 mmol/L (10-20); BUN (Urea Nitrogen) 10 mg/dL (9.8-20.1); Bilirubin, Total 0.5 mg/dL (0.2-1.2); Calc. Creatinine Clearance 52 mL/min (70-130); Carbon Dioxide 24 mmol/L (23-31); Chloride 110 mmol/L (98-107); Globulin 2.6 g/dL (2.4-3.5); Glucose 80 mg/dL (83-110); Magnesium 1.6 mg/dL (1.6-2.6); Potassium 3.8 mmol/L (3.5-5.1); Protein, Total 5.7 g/dL (5.8-8.1); Sodium 138 mmol/L (136-145)
[2021-03-20 05:57] LABS: Phosphorus 1.9 mg/dL (2.3-4.7)
[2021-03-20] MEDS ORDERED: Electrolyte Replacement Protocol 1 EACH FS PRN (06:13)
[2021-03-20 06:38] LABS: Band 28 % (5-11); Eosinophils 5 % (0-10); Hemoglobin 10.5 g/dL (12.0-16.0); Lymphocytes 10 % (21-51); MDiff Complete? YES; Mean Corpuscular HGB CONC 34.2 g/dL (32.0-36.0); Mean Corpuscular Hemoglobin 30.8 pg (27.0-31.0); Mean Corpuscular Volume 90.1 fL (78.0-98.0); Mean Platelet Volume 7.8 fL (7.4-10.4); Monocytes 7 % (0-10); Neutrophil 50 % (42-75); Platelet Count 109 thou/uL (130-400); Platelet Morphology Comment Appears Decreased; White Blood Cell (WBC) Count 12.1 thou/uL (4.8-10.8)
[2021-03-20] MEDS ORDERED: Magnesium 2 GM/50 ML 2 GM in Premix Bag 1 BAG IVPB SCH (07:00)
[2021-03-20] MEDS: Enoxaparin Sodium 40 MG/0.4 ML SYRINGE SC SCH (07:40)
[2021-03-20] MEDS: Saccharomyces boulardii 250 MG CAP PO SCH (07:40)
[2021-03-20] MEDS: Pantoprazole 40 MG VIAL IVP SCH (07:41)
[2021-03-20] MEDS: PHOS-NAK 1 PKT PACK PO SCH ×2 (07:41→10:58)
[2021-03-20 08:20] VITALS: TEMP 98
[2021-03-20] MEDS ORDERED: Lisinopril 20 MG TAB PO SCH (09:00)
[2021-03-20] MEDS ORDERED: Diphenoxylate HCl/Atropine Tablet PO PRN (10:03)
[2021-03-20] MEDS ORDERED: Diphenoxylate HCl/Atropine Tablet PO SCH (10:15)
[2021-03-20 12:01] VITALS: BP 138/70
== END 2021-03-20 13:24 | disposition home health service (06) | DRG 394 ==
LOC: ERS 16:37 → SURG B 22:07
PROVIDERS: ADMIT Student in an Organized Health Care Education/Training Program; ATTEND Internal Medicine
DX: K52.1 Toxic gastroenteritis and colitis (principal); C25.9 Malignant neoplasm of pancreas, unspecified; C78.7 Secondary malignant neoplasm of liver and intrahepatic bile duct; T45.1X5A Adverse effect of antineoplastic and immunosuppressive drugs, initial encounter; E11.9 Type 2 diabetes mellitus without complications; E86.0 Dehydration; I10 Essential (primary) hypertension; E83.42 Hypomagnesemia; D63.8 Anemia in other chronic diseases classified elsewhere; I95.9 Hypotension, unspecified; F41.9 Anxiety disorder, unspecified; F32.9 Major depressive disorder, single episode, unspecified; K21.9 Gastro-esophageal reflux disease without esophagitis; Z20.822 Contact with and (suspected) exposure to COVID-19; Z88.2 Allergy status to sulfonamides; Z92.21 Personal history of antineoplastic chemotherapy; Z88.1 Allergy status to other antibiotic agents; Z91.041 Radiographic dye allergy status; Z88.8 Allergy status to other drugs, medicaments and biological substances; Z79.4 Long term (current) use of insulin; Z79.899 Other long term (current) drug therapy; Z90.710 Acquired absence of both cervix and uterus; Z90.49 Acquired absence of other specified parts of digestive tract; Z98.890 Other specified postprocedural states; Z90.721 Acquired absence of ovaries, unilateral; Z87.891 Personal history of nicotine dependence
CPT/HCPCS: 36415; 71045; 80048; 80053; 81001; 82550; 83735; 84100; 84484; 85025; 87086; 87324; 87449; 93005; C9113; J1650; J2405; J2543; J3475; J3490; J7050; Q0162; U0003; U0005

== ENCOUNTER 2021-05-07 10:49 | Inpatient (IN) | payer MEDICARE ==
[2021-05-07 12:18] LABS: #Basophils 0.1 thou/uL (0.0-0.2); #Eosinphils 0.3 thou/uL (0.0-0.7); #Lymphocytes 1.5 thou/uL (1.20-3.40); #Neutrophils 11.8 thou/uL (1.40-6.50); %Basophils 0.5 % (0.0-1.0); %Eosinophils 1.9 % (0.0-10.0); %Monocytes 6.8 % (0.0-10.0); %Neutrophils 80.7 % (42.0-75.0); Hemoglobin 10.7 g/dL (12.0-16.0); Mean Corpuscular HGB CONC 32.4 g/dL (32.0-36.0); Mean Corpuscular Hemoglobin 30.7 pg (27.0-31.0); Mean Corpuscular Volume 94.9 fL (78.0-98.0); Mean Platelet Volume 6.8 fL (7.4-10.4); Platelet Count 391 thou/uL (130-400); White Blood Cell (WBC) Count 14.6 thou/uL (4.8-10.8)
[2021-05-07 12:30] LABS: INR-International Normal Ratio 1.2; Prothrombin Time 14.9 sec (12.0-14.7)
[2021-05-07 12:31] LABS: PTT 29.5 sec (22.9-36.1)
[2021-05-07 12:43] LABS: ALT (SGPT) 16 U/L (8-55); AST (SGOT) 24 U/L (5-34); Albumin 2.9 g/dL (3.4-4.8); Alkaline Phosphatase 199 U/L (40-110); Anion Gap 8 mmol/L (10-20); BUN (Urea Nitrogen) 13 mg/dL (9.8-20.1); Bilirubin, Total 0.2 mg/dL (0.2-1.2); Calc. Creatinine Clearance 0 mL/min (70-130); Calcium 9.1 mg/dL (7.8-10.44); Carbon Dioxide 28 mmol/L (23-31); Chloride 110 mmol/L (98-107); Globulin 2.7 g/dL (2.4-3.5); Potassium 3.5 mmol/L (3.5-5.1); Protein, Total 5.6 g/dL (5.8-8.1); Sodium 142 mmol/L (136-145)
[2021-05-07 12:48] LABS: Glucose 46 mg/dL (83-110)
[2021-05-07] MEDS ORDERED: Aspirin Chewable 81 MG TAB ONE (15:15)
[2021-05-07] MEDS ORDERED: Dextrose 50% Abboject 50 ML SYRINGE SLOW IVP PRN (17:18)
[2021-05-07] MEDS ORDERED: Dextrose 5% in Water 1,000 ML IV PRN (17:18)
[2021-05-07] MEDS ORDERED: Ondansetron ODT 4 MG TAB PO PRN (17:23)
[2021-05-07] MEDS ORDERED: Acetaminophen 325 MG TAB PO PRN (17:23)
[2021-05-07 20:42] LABS: Bacteria/HPF None Seen HPF (None Seen); Bilirubin Negative (Negative); Blood, Urine Negative (Negative); Clarity Clear (Clear); Glucose, Urine (Dipstick) Normal (Negative); Ketone, Urine Negative (Negative); Leukocyte Negative Leu/uL (Negative); Mucous/LPF Rare LPF (<2+); Nitrite Negative (Negative); Protein, Urine (Dipstick) Negative (Neg-Trace); RBC/HPF 0-3 HPF (0-3); Renal Epithelial 0-3 HPF (None Seen); Specific Gravity, Urine 1.012 (1.002-1.036); Squamous Epithelial 0-3 HPF (0-3); Urobilinogen Normal mg/dL (Less than 2); WBC/HPF 0-3 HPF (0-3)
[2021-05-07 22:57] VITALS: BMI 24.6
[2021-05-08] MEDS: HumaLOG 300 UNITS/3 ML VIAL SC PRN ×5 (00:36→21:05)
[2021-05-08] MEDS: Levothyroxine Sodium 112 MCG TAB PO SCH (05:21)
[2021-05-08 06:01] LABS: #Eosinphils 0.3 thou/uL (0.0-0.7); #Lymphocytes 1.4 thou/uL (1.20-3.40); #Neutrophils 8.1 thou/uL (1.40-6.50); %Basophils 0.7 % (0.0-1.0); %Eosinophils 2.4 % (0.0-10.0); %Lymphocytes 12.7 % (21.0-51.0); %Monocytes 8.9 % (0.0-10.0); %Neutrophils 75.4 % (42.0-75.0); Hemoglobin 10.7 g/dL (12.0-16.0); Mean Corpuscular HGB CONC 32.3 g/dL (32.0-36.0); Mean Corpuscular Hemoglobin 30.8 pg (27.0-31.0); Mean Corpuscular Volume 95.4 fL (78.0-98.0); Mean Platelet Volume 7.1 fL (7.4-10.4); Platelet Count 319 thou/uL (130-400); RBC Distribution Width 17.9 % (11.5-14.5); Red Blood Cell (RBC) Count 3.48 mill/uL (4.20-5.40); White Blood Cell (WBC) Count 10.8 thou/uL (4.8-10.8)
[2021-05-08 06:02] LABS: #Basophils 0.1 thou/uL (0.0-0.2)
[2021-05-08 06:24] LABS: Anion Gap 10 mmol/L (10-20); BUN (Urea Nitrogen) 9 mg/dL (9.8-20.1); Calc. Creatinine Clearance 60 mL/min (70-130); Calcium 8.9 mg/dL (7.8-10.44); Carbon Dioxide 29 mmol/L (23-31); Cardiac Risk 2.4 (Less than 4.5); Chloride 108 mmol/L (98-107); Cholesterol 112 mg/dl (< 200 Desired); Glucose 198 mg/dL (83-110); HDL Cholesterol 47 mg/dL (>60 Neg Risk); LDL Cholesterol, Calculated 53 mg/dL; Magnesium 1.6 mg/dL (1.6-2.6); Potassium 3.8 mmol/L (3.5-5.1); Sodium 143 mmol/L (136-145); Triglycerides 60 mg/dL (Less than 150)
[2021-05-08 06:49] LABS: Thyroid Stimulating Hormone 2.7004 uIU/mL (0.35-4.94)
[2021-05-08 06:54] LABS: Vitamin B12 Greater than 2000 pg/mL (211-911)
[2021-05-08] MEDS: Aspirin 81 mg Enteric Coated Tablet PO SCH (08:47)
[2021-05-08] MEDS: Escitalopram Oxalate 10 mg Tablet PO SCH (08:47)
[2021-05-08] MEDS: Bupropion 150 MG XL TAB PO SCH (08:50)
[2021-05-08] MEDS: Lisinopril 20 MG TAB PO SCH (10:43)
[2021-05-08] MEDS: traMADol HCl 50 MG TAB PO SCH ×2 (10:43→21:03)
[2021-05-08 12:38] LABS: SARS-CoV-2 PCR by NAA Not Detected (NotDetected)
[2021-05-08] MEDS ORDERED: Lisinopril 20 MG TAB PO SCH (21:00)
[2021-05-08] MEDS: Nitrofurantoin Monohyd/M-Cryst 100 MG CAP PO SCH (21:03)
[2021-05-08] MEDS: predniSONE 50 MG TAB PO SCH (21:05)
[2021-05-08] MEDS: Simethicone Chewable 80 MG TAB PO PRN (21:54)
[2021-05-09] MEDS: hydrALAZINE 25 MG TAB PO PRN ×2 (01:06→21:08)
[2021-05-09] MEDS: predniSONE 50 MG TAB PO SCH ×2 (02:56→08:26)
[2021-05-09] MEDS: HumaLOG 300 UNITS/3 ML VIAL SC PRN ×6 (04:27→23:50)
[2021-05-09] MEDS: Levothyroxine Sodium 112 MCG TAB PO SCH (06:17)
[2021-05-09] MEDS ORDERED: diphenhydrAMINE 25 MG CAP PO SCH (08:00)
[2021-05-09] MEDS: Aspirin 81 mg Enteric Coated Tablet PO SCH (08:24)
[2021-05-09] MEDS: Escitalopram Oxalate 10 mg Tablet PO SCH (08:25)
[2021-05-09] MEDS: Bupropion 150 MG XL TAB PO SCH (08:26)
[2021-05-09] MEDS: Lisinopril 20 MG TAB PO SCH (08:26)
[2021-05-09] MEDS: traMADol HCl 50 MG TAB PO SCH ×2 (08:27→21:09)
[2021-05-09 10:24] LABS: Hemoglobin A1c 5.4 % (4.0-6.0)
[2021-05-09 10:40] LABS: Anion Gap 11 mmol/L (10-20); BUN (Urea Nitrogen) 12 mg/dL (9.8-20.1); Calc. Creatinine Clearance 54 mL/min (70-130); Calcium 9.1 mg/dL (7.8-10.44); Carbon Dioxide 29 mmol/L (23-31); Chloride 98 mmol/L (98-107); Glucose 307 mg/dL (83-110); Potassium 4.3 mmol/L (3.5-5.1); Sodium 134 mmol/L (136-145)
[2021-05-09] MEDS ORDERED: Iopamidol 370 76% 100 ML VIAL ONE (11:02)
[2021-05-09] MEDS ORDERED: Polyethylene Glycol 3350 17 GM Packet PO SCH (11:30)
[2021-05-09] MEDS ORDERED: HumaLOG 300 UNITS/3 ML VIAL SC SCH (16:30)
[2021-05-09] MEDS ORDERED: Insulin Regular 300 UNITS/3 ML VIAL SC SCH (17:45)
[2021-05-09] MEDS ORDERED: Atorvastatin Calcium 10 MG TAB PO SCH (21:00)
[2021-05-09] MEDS: Simethicone Chewable 80 MG TAB PO PRN (21:08)
[2021-05-09] MEDS: Nitrofurantoin Monohyd/M-Cryst 100 MG CAP PO SCH (21:09)
[2021-05-10] MEDS: hydrALAZINE 25 MG TAB PO PRN (03:58)
[2021-05-10] MEDS: HumaLOG 300 UNITS/3 ML VIAL SC PRN ×2 (03:59→08:30)
[2021-05-10] MEDS: Levothyroxine Sodium 112 MCG TAB PO SCH (05:23)
[2021-05-10] MEDS: Escitalopram Oxalate 10 mg Tablet PO SCH (08:25)
[2021-05-10] MEDS: Lisinopril 20 MG TAB PO SCH (08:25)
[2021-05-10] MEDS: Aspirin 81 mg Enteric Coated Tablet PO SCH (08:26)
[2021-05-10] MEDS: Bupropion 150 MG XL TAB PO SCH (08:26)
[2021-05-10] MEDS: traMADol HCl 50 MG TAB PO SCH (08:26)
[2021-05-10] MEDS ORDERED: FLU VACC QS2021-22(65YR UP)/PF 240 MCG/0.7 ML SYRINGE IM ONE (09:00)
[2021-05-10] MEDS ORDERED: Polyethylene Glycol 3350 17 GM Packet PO SCH (09:00)
[2021-05-10 11:48] VITALS: BP 174/74; TEMP 97.9
== END 2021-05-10 13:24 | disposition home health service (06) | DRG 68 ==
LOC: ERS 10:49 → ERHOLD 14:16 → 3SE 18:33 → OBSVTOIN 05-09 15:26
PROVIDERS: ADMIT Internal Medicine; ATTEND Internal Medicine
DX: I65.22 Occlusion and stenosis of left carotid artery (principal); C25.9 Malignant neoplasm of pancreas, unspecified; E11.649 Type 2 diabetes mellitus with hypoglycemia without coma; Z96.41 Presence of insulin pump (external) (internal); K21.9 Gastro-esophageal reflux disease without esophagitis; F32.A Depression, unspecified; E03.9 Hypothyroidism, unspecified; Z87.440 Personal history of urinary (tract) infections; Z88.1 Allergy status to other antibiotic agents; Z91.041 Radiographic dye allergy status; Z88.2 Allergy status to sulfonamides; Z88.8 Allergy status to other drugs, medicaments and biological substances; Z79.899 Other long term (current) drug therapy; Z79.84 Long term (current) use of oral hypoglycemic drugs; Z79.4 Long term (current) use of insulin; Z79.890 Hormone replacement therapy; Z86.73 Personal history of transient ischemic attack (TIA), and cerebral infarction without residual deficits; R29.810 Facial weakness; D63.8 Anemia in other chronic diseases classified elsewhere; Z90.49 Acquired absence of other specified parts of digestive tract; Z90.710 Acquired absence of both cervix and uterus; E11.65 Type 2 diabetes mellitus with hyperglycemia
CPT/HCPCS: 36415; 36416; 70450; 70496; 70498; 70551; 71045; 71260; 74177; 80048; 80053; 80061; 81001; 82607; 82746; 83036; 83735; 84443; 84484; 85025; 85610; 85730; 93005; 93880; G0378; J1642; J1815; J7050; J7512; Q0163; Q9967; U0003; U0005

== ENCOUNTER 2021-06-18 14:14 | Outpatient (CLI) | payer MEDICARE | END 2021-06-18 14:15 | disposition home or self-care (01) | LOC: BICCT 14:14 | PROVIDERS: ATTEND Family Medicine | DX: R10.9 Unspecified abdominal pain (principal); K76.9 Liver disease, unspecified; E27.8 Other specified disorders of adrenal gland; R91.1 Solitary pulmonary nodule | CPT/HCPCS: 74176 ==

== ENCOUNTER 2021-07-12 09:52 | Outpatient (CLI) | payer MEDICARE | END 2021-07-12 09:53 | disposition home or self-care (01) | LOC: CT 09:52 | PROVIDERS: ATTEND Internal Medicine Hematology & Oncology | DX: C25.8 Malignant neoplasm of overlapping sites of pancreas (principal); C78.7 Secondary malignant neoplasm of liver and intrahepatic bile duct; K86.89 Other specified diseases of pancreas; E27.8 Other specified disorders of adrenal gland; R18.8 Other ascites | CPT/HCPCS: 71260; 74177; 82565 ==

== ENCOUNTER 2021-09-06 09:50 | Outpatient (CLI) | payer MEDICARE ==
[2021-09-06] MEDS ORDERED: Iopamidol 370 76% 50 ML VIAL FS ONE (11:40)
== END 2021-09-06 09:51 | disposition home or self-care (01) ==
LOC: CT 09:50
PROVIDERS: ATTEND Internal Medicine Hematology & Oncology
DX: C25.8 Malignant neoplasm of overlapping sites of pancreas (principal); C78.7 Secondary malignant neoplasm of liver and intrahepatic bile duct; D50.8 Other iron deficiency anemias; R91.1 Solitary pulmonary nodule; K86.89 Other specified diseases of pancreas; R18.8 Other ascites
CPT/HCPCS: 71260; 74177

== ENCOUNTER 2021-09-07 13:32 | Day surgery (SDC) | payer MEDICARE ==
[2021-09-07 13:43] LABS: #Eosinphils 0.1 thou/uL (0.0-0.7); #Lymphocytes 1.3 thou/uL (1.20-3.40); #Monocytes 1.2 thou/uL (0.11-0.59); #Neutrophils 14.3 thou/uL (1.40-6.50); %Basophils 0.2 % (0.0-1.0); %Eosinophils 0.8 % (0.0-10.0); %Lymphocytes 7.7 % (21.0-51.0); %Neutrophils 84.4 % (42.0-75.0); Hemoglobin 11.5 g/dL (12.0-16.0); Mean Corpuscular HGB CONC 31.4 g/dL (32.0-36.0); Mean Corpuscular Hemoglobin 28.2 pg (27.0-31.0); Mean Corpuscular Volume 89.8 fL (78.0-98.0); Platelet Count 383 thou/uL (130-400); Red Blood Cell (RBC) Count 4.09 mill/uL (4.20-5.40); White Blood Cell (WBC) Count 16.9 thou/uL (4.8-10.8)
[2021-09-07] MEDS ORDERED: Sodium Bicarbonate 2.5 MEQ/5 ML VIAL ONE (13:46)
[2021-09-07 13:52] LABS: INR-International Normal Ratio 1.2; PTT 27.8 sec (22.9-36.1); Prothrombin Time 15.3 sec (12.0-14.7)
[2021-09-07] MEDS ORDERED: Lidocaine 1% PF 5 ML VIAL ONE (14:28)
[2021-09-07 15:48] VITALS: BP 154/75
== END 2021-09-07 15:30 | disposition home or self-care (01) ==
LOC: ULT 13:32
PROVIDERS: ATTEND Internal Medicine Hematology & Oncology
PROC: 0W9G3ZZ Drainage of Peritoneal Cavity, Percutaneous Approach (ICD-10-PCS; principal; 2021-09-07)
DX: R18.8 Other ascites (principal); C25.8 Malignant neoplasm of overlapping sites of pancreas; C78.7 Secondary malignant neoplasm of liver and intrahepatic bile duct; E11.9 Type 2 diabetes mellitus without complications; I10 Essential (primary) hypertension; E07.9 Disorder of thyroid, unspecified; K21.9 Gastro-esophageal reflux disease without esophagitis; Z87.891 Personal history of nicotine dependence; Z79.2 Long term (current) use of antibiotics; Z79.4 Long term (current) use of insulin; Z79.84 Long term (current) use of oral hypoglycemic drugs; Z79.890 Hormone replacement therapy; Z79.899 Other long term (current) drug therapy; Z88.1 Allergy status to other antibiotic agents; Z88.2 Allergy status to sulfonamides; Z88.8 Allergy status to other drugs, medicaments and biological substances; Z91.041 Radiographic dye allergy status
CPT/HCPCS: 36415; 49083; 85025; 85610; 85730

== ENCOUNTER 2021-09-17 16:46 | Outpatient (CLI) | payer MEDICARE ==
[2021-09-17 17:39] LABS: #Basophils 0.1 10x3/uL (0.0-0.2); #Eosinphils 0.1 10x3/uL (0.0-0.5); #Monocytes 1.1 10x3/uL (0.0-1.1); #Neutrophils 12.1 10x3/uL (1.5-8.4); %Basophils 0.6 % (0.0-2.0); %Eosinophils 0.7 % (0.0-6.0); %Lymphocytes 9.7 % (18.0-47.0); %Monocytes 7.3 % (0.0-10.0); %Neutrophils 81.3 % (40.0-75.0); Hemoglobin 12.7 g/dL (12.0-15.5); Mean Corpuscular HGB CONC 30.7 g/dL (32.0-36.0); Mean Corpuscular Hemoglobin 26.8 pg (27.0-33.0); Mean Corpuscular Volume 87.3 fl (81.6-98.3); Mean Platelet Volume 10.2 fl (7.4-10.4); Platelet Count 316 10x3/uL (150-450); RBC Distribution Width 16.2 % (11.5-14.5); Red Blood Cell (RBC) Count 4.74 10x6/uL (3.90-5.03); White Blood Cell (WBC) Count 14.9 10x3/uL (3.5-10.5)
[2021-09-17 17:57] LABS: Anion Gap 15 mmol/L (10-20); BUN (Urea Nitrogen) 24 mg/dL (9.8-20.1); Calc. Creatinine Clearance 0 mL/min (70-130); Calcium 8.9 mg/dL (7.8-10.44); Carbon Dioxide 26 mmol/L (23-31); Chloride 103 mmol/L (98-107); Glucose 81 mg/dL (83-110); Potassium 4.1 mmol/L (3.5-5.1); Sodium 140 mmol/L (136-145)
[2021-09-18 17:50] LABS: SARS-CoV-2 PCR by NAA Not Detected (NotDetected)
== END 2021-09-17 16:47 | disposition home or self-care (01) ==
LOC: LABBT 16:46
PROVIDERS: ATTEND Specialist
DX: Z01.818 Encounter for other preprocedural examination (principal); C25.9 Malignant neoplasm of pancreas, unspecified; Z20.822 Contact with and (suspected) exposure to COVID-19
CPT/HCPCS: 71046; 80048; 85025; 93005; U0003; U0005; 93010

== ENCOUNTER 2021-09-19 06:18 | Day surgery (SDC) | payer MEDICARE ==
[2021-09-18 09:45] VITALS: BMI 21.2
[2021-09-19] MEDS ORDERED: Acetaminophen 500 MG TAB ONE (06:27)
[2021-09-19] MEDS ORDERED: Fentanyl 250 MCG/5 ML VIAL ONE ×2 (06:31→08:29)
[2021-09-19] MEDS ORDERED: Bupivacaine PF 0.5% 30 ML VIAL ONE (06:40)
[2021-09-19] MEDS ORDERED: Xylocaine 1% w/ Epi 1:100K 10 ML VIAL ONE (06:40)
[2021-09-19] MEDS ORDERED: EPINEPHrine 1 MG/ML AMP ONE (06:40)
[2021-09-19] MEDS ORDERED: Lidocaine 2% Jelly 5 ML TUBE ONE (06:47)
[2021-09-19] MEDS ORDERED: ceFAZolin Sodium (SDC) 2 GM/100 ML BAG ONE (07:02)
[2021-09-19] MEDS ORDERED: Lidocaine 1% PF 5 ML VIAL ONE (07:12)
[2021-09-19] MEDS ORDERED: Ondansetron PF 4 MG/2 ML Vial ONE (07:12)
[2021-09-19] MEDS ORDERED: PROPOFOL 200 MG/20 ML VIAL ONE (07:12)
[2021-09-19] MEDS ORDERED: PHENYLEPHRINE-NS 100 MCG/ML 10 ML SYRINGE ONE (07:12)
[2021-09-19] MEDS ORDERED: Dexamethasone 20 MG/5 ML VIAL ONE (07:12)
[2021-09-19] MEDS ORDERED: Rocuronium Bromide 10 MG/ML (10ML VIAL) ONE (07:12)
[2021-09-19] MEDS ORDERED: Albumin 5% 0 ML ONE (07:44)
[2021-09-19] MEDS ORDERED: Albumin 25% 100 ML ONE (07:45)
== END 2021-09-19 10:15 | disposition home or self-care (01) ==
LOC: SDC 06:18
PROVIDERS: ATTEND Specialist
PROC: 0WHG43Z Insertion of Infusion Device into Peritoneal Cavity, Percutaneous Endoscopic Approach (ICD-10-PCS; principal; 2021-09-19)
DX: C25.9 Malignant neoplasm of pancreas, unspecified (principal); R18.0 Malignant ascites; C78.6 Secondary malignant neoplasm of retroperitoneum and peritoneum; C78.7 Secondary malignant neoplasm of liver and intrahepatic bile duct; C79.89 Secondary malignant neoplasm of other specified sites; K66.0 Peritoneal adhesions (postprocedural) (postinfection); E11.9 Type 2 diabetes mellitus without complications; E03.9 Hypothyroidism, unspecified; I10 Essential (primary) hypertension; K21.9 Gastro-esophageal reflux disease without esophagitis; M19.90 Unspecified osteoarthritis, unspecified site; Z79.2 Long term (current) use of antibiotics; Z79.84 Long term (current) use of oral hypoglycemic drugs; Z79.899 Other long term (current) drug therapy; Z88.1 Allergy status to other antibiotic agents; Z88.2 Allergy status to sulfonamides; Z88.8 Allergy status to other drugs, medicaments and biological substances
CPT/HCPCS: 49324; P9047; 36416; C1729; J0171; J0690; J1100; J1642; J2405; J2704; J3010; P9045; S0020